=== PATIENT | female | born 1995 | race Caucasian/White ===

== ENCOUNTER 2021-01-03 19:06 | Inpatient (IN) | payer BC, MEDICAID ==
[2021-01-02 23:00] VITALS: BP 117/69
[~2021-01-03] VITALS: Ht 160 cm; Wt 78.0 kg
[2021-01-03] MEDS: BETAMETHASONE 6 MG/ML, 5ML IM SCH (18:28)
[2021-01-03] MEDS ORDERED: MAGNESIUM SULF. PMX 20GM/500ML 500 ML IV SCH (21:30)
[2021-01-03] MEDS ORDERED: CALCIUM GLUCONATE 4.6 MEQ/10 ML IV PRN (21:30)
[2021-01-03 21:55] LABS: MICROSCOPIC INDICATED
[2021-01-03 21:59] LABS: AMPHETAMINE SCREEN, URINE Negative (Negative); BARBITURATE SCREEN, URINE Negative (Negative); BENZODIAZEPINE SCREEN, URINE Negative (Negative); CANNABINOID SCREEN, URINE Negative (Negative); COCAINE SCREEN, URINE Negative (Negative); METHADONE SCREEN, URINE Negative (Negative); OPIATE SCREEN, URINE Negative (Negative)
[2021-01-03] MEDS ORDERED: ONDANSETRON 2MG/ML, 2ML IVPush PRN (23:00)
[2021-01-03] MEDS ORDERED: INDOMETHACIN 50 MG CAPSULE PO ONE (23:00)
[2021-01-03] MEDS ORDERED: ACETAMINOPHEN 325 MG TABLET PO PRN (23:00)
[2021-01-03] MEDS ORDERED: LACTATED RINGERS 1,000 ML IV SCH (23:00)
[2021-01-03] MEDS ORDERED: INDOMETHACIN 50 MG CAPSULE ONE (23:05)
[2021-01-03] MEDS: PENICILLIN GK 2,500,000 UNITS in DEXTROSE 5% 100 ML IV SCH (23:07)
[2021-01-04] MEDS ORDERED: NITR100C56 PO (01:29)
[2021-01-04] MEDS ORDERED: PREN1TAB98 PO (01:29)
[2021-01-04] MEDS ORDERED: FERR324T18 PO (01:29)
[2021-01-04] MEDS: PENICILLIN GK 2,500,000 UNITS in DEXTROSE 5% 100 ML IV SCH ×6 (03:15→23:20)
[2021-01-04] MEDS ORDERED: MAGNESIUM SULF. PMX 20GM/500ML 500 ML IV ONE (05:26)
[2021-01-04] MEDS: MAGNESIUM SULF. PMX 20GM/500ML 500 ML IV SCH ×2 (05:30→22:36)
[2021-01-04] MEDS: INDOMETHACIN 50 MG CAPSULE PO SCH ×3 (06:00→22:00)
[2021-01-04] MEDS ORDERED: INDOMETHACIN 50 MG CAPSULE PO SCH (06:00)
[2021-01-04 10:00] VITALS: BP 105/57
[2021-01-04] MEDS: FERROUS GLUCONATE 324 MG TABLET PO SCH (10:01)
[2021-01-04] MEDS ORDERED: NITROFURANTOIN (MACROBID) 100 MG CAPSULE ONE (17:25)
[2021-01-04] MEDS: NITROFURANTOIN (MACROBID) 100 MG CAPSULE PO SCH (17:27)
[2021-01-04] MEDS: BETAMETHASONE 6 MG/ML, 5ML IM SCH (18:30)
[2021-01-04] MEDS ORDERED: NITROFURANTOIN (MACROBID) 100 MG CAPSULE PO ONE (21:00)
[2021-01-05] MEDS: PENICILLIN GK 2,500,000 UNITS in DEXTROSE 5% 100 ML IV SCH ×3 (03:40→10:55)
[2021-01-05] MEDS: FERROUS GLUCONATE 324 MG TABLET PO SCH (07:26)
[2021-01-05] MEDS: INDOMETHACIN 50 MG CAPSULE PO SCH ×2 (14:00→23:01)
[2021-01-05] MEDS: NITROFURANTOIN (MACROBID) 100 MG CAPSULE PO SCH (23:01)
[2021-01-06 07:45] VITALS: BP 110/59
[2021-01-06] MEDS: FERROUS GLUCONATE 324 MG TABLET PO SCH (08:20)
[2021-01-06] MEDS: NITROFURANTOIN (MACROBID) 100 MG CAPSULE PO SCH (20:31)
[2021-01-07 07:47] VITALS: BP 87/54
[2021-01-07] MEDS: FERROUS GLUCONATE 324 MG TABLET PO SCH (08:01)
== END 2021-01-07 09:25 | disposition home or self-care (01) | DRG 566 ==
LOC: LDIP 20:23
PROVIDERS: ADMIT Obstetrics & Gynecology Maternal & Fetal Medicine; ATTEND Obstetrics & Gynecology Maternal & Fetal Medicine
DX: O32.1XX0 Maternal care for breech presentation, not applicable or unspecified (principal); O60.03 Preterm labor without delivery, third trimester; O99.323 Drug use complicating pregnancy, third trimester; F15.10 Other stimulant abuse, uncomplicated; F17.210 Nicotine dependence, cigarettes, uncomplicated; O40.3XX0 Polyhydramnios, third trimester, not applicable or unspecified; O99.333 Smoking (tobacco) complicating pregnancy, third trimester; Z3A.30 30 weeks gestation of pregnancy
CPT/HCPCS: 36415; 80307; 81001; 83735; 86850; 86870; 86900; 86922; 86923; 87086; 87635; G0378; J0702; J2540; J3475; J7120

== ENCOUNTER 2021-01-19 06:54 | Inpatient (IN) | payer BC, MEDICAID ==
[~2021-01-19] VITALS: Ht 160 cm; Wt 78.6 kg
[~2021-01-19 06:54] MED LIST: FERR324T18 PO; NITR100C56 PO; PREN1TAB98 PO
[2021-01-19] MEDS: LACTATED RINGERS 1,000 ML IV SCH ×2 (07:56→16:22)
[2021-01-19] MEDS ORDERED: CALCIUM GLUCONATE 4.6 MEQ/10 ML IV PRN (08:00)
[2021-01-19] MEDS ORDERED: LACTATED RINGERS 1,000 ML IV PRN (08:00)
[2021-01-19] MEDS ORDERED: MAGNESIUM SULF. PMX 20GM/500ML 500 ML IV SCH (08:00)
[2021-01-19 09:00] VITALS: BP 132/64
[2021-01-19 09:00] LABS: BASOPHILS % (AUTO) 0 % (0-1); EOSINOPHILS % (AUTO) 0 % (1-7); LYMPHOCYTES % (AUTO) 11 % (22-44); MEAN CORPUSCULAR HEMOGLOBIN 29.5 pg (27.0-34.8); MEAN CORPUSCULAR HGB CONC 33.9 g/dL (32.4-35.8); MEAN PLATELET VOLUME 7.8 fL (7.4-10.4); MONOCYTES % (AUTO) 5 % (2-9); NEUTROPHILS % (AUTO) 84 % (42-75); PLATELET COUNT 247 x10^3/uL (130-400); RED BLOOD COUNT 3.64 x10^6/uL (3.82-5.3); RED CELL DISTRIBUTION WIDTH 16.8 % (9.6-15.2)
[2021-01-19] MEDS ORDERED: PLEASE ENTER HEIGHT AND WEIGHT MC SCH (09:00)
[2021-01-19 09:13] LABS: AMPHETAMINE SCREEN, URINE Negative (Negative); BARBITURATE SCREEN, URINE Negative (Negative); BENZODIAZEPINE SCREEN, URINE Negative (Negative); CANNABINOID SCREEN, URINE Negative (Negative); COCAINE SCREEN, URINE Negative (Negative); METHADONE SCREEN, URINE Negative (Negative); OPIATE SCREEN, URINE Negative (Negative)
[2021-01-19] MEDS ORDERED: ACETAMINOPHEN 650 MG SUPP ONE (10:08)
[2021-01-19] MEDS ORDERED: ACETAMINOPHEN 325 MG TABLET ONE (10:09)
[2021-01-19] MEDS ORDERED: TERBUTALINE 1 MG/ML, 1ML IVPush PRN (10:30)
[2021-01-19] MEDS ORDERED: FENTANYL PF 100 MCG/2ML IV PRN (10:30)
[2021-01-19] MEDS ORDERED: FENTANYL PF 100 MCG/2ML IVPush PRN (10:30)
[2021-01-19] MEDS ORDERED: TERBUTALINE 1 MG/ML, 1ML SQ PRN (10:30)
[2021-01-19] MEDS ORDERED: OXYTOCIN 30U/ 0.9% NaCL 500ML 500 ML IV ONE (10:30)
[2021-01-19] MEDS ORDERED: ONDANSETRON 2MG/ML, 2ML IVPush PRN (10:30)
[2021-01-19] MEDS ORDERED: SODIUM CITRATE/CITRIC ACID 30 ML UDC PO PRN (10:30)
[2021-01-19 10:54] LABS: MICROSCOPIC INDICATED
[2021-01-19 11:03] LABS: % IRON SATURATION 7 % (20-55); IRON LEVEL 34 mcg/dL (50-170); TOTAL IRON BINDING CAPACITY 465 mcg/dL (250-450)
[2021-01-19] MEDS ORDERED: CEFAZOLIN 2,000 MG in DEXTROSE 5% 50 ML IV ONE (11:30)
[2021-01-19] MEDS ORDERED: CEFAZOLIN 2,000 MG in SODIUM CHLORIDE 0.9% 50 ML IV ONE (11:30)
[2021-01-19] MEDS ORDERED: ACETAMINOPHEN 325 MG TABLET PO PRN (12:00)
[2021-01-19] MEDS: PENICILLIN GK 2,500,000 UNITS in DEXTROSE 5% 100 ML IVPB SCH ×3 (12:28→20:00)
[2021-01-19] MEDS ORDERED: NEWBORN KIT ONE (13:03)
[2021-01-19] MEDS ORDERED: LIDOCAINE 1%, 20ML ONE (13:03)
[2021-01-19] MEDS ORDERED: MISOPROSTOL 200 MCG TABLET ONE (13:03)
[2021-01-19] MEDS ORDERED: FENTANYL/BUPIV./NS/PF 250 ML EPIDCONT ONE (15:21)
[2021-01-19] MEDS ORDERED: FENTANYL/BUPIV./NS/PF 250 ML EPIDCONT SCH (16:30)
[2021-01-19] MEDS ORDERED: EPHEDRINE 50 MG/ML, 1ML IVPush PRN (16:30)
[2021-01-19] MEDS ORDERED: LACTATED RINGERS 1,000 ML IVBOLUS PRN (16:30)
[2021-01-19] MEDS ORDERED: NALOXONE 0.4 MG/ML, 1ML IVPush PRN (16:30)
[2021-01-19 19:18] VITALS: BP 107/53
[2021-01-19] MEDS ORDERED: NITROFURANTOIN (MACROBID) 100 MG CAPSULE ONE (22:25)
[2021-01-19] MEDS ORDERED: DIPH,PERTUSS(ACELL),TET VAC/PF NC IM-VACC PRN (22:30)
[2021-01-19] MEDS ORDERED: RHOGAM FROM BLOOD BANK 1 NOTE EA IM/IV ONE (22:30)
[2021-01-19] MEDS ORDERED: METOCLOPRAMIDE 5 MG/ML, 2ML IV PRN (22:30)
[2021-01-19] MEDS ORDERED: CEFAZOLIN PMX 1GM/50ML 50 ML IV ONE (22:30)
[2021-01-19] MEDS ORDERED: BISACODYL 10 MG SUPP PR PRN (22:30)
[2021-01-19] MEDS ORDERED: CALCIUM CARBONATE 500 MG TAB.CHEW PO PRN (22:30)
[2021-01-19] MEDS ORDERED: OXYTOCIN 30U/ 0.9% NaCL 500ML 500 ML IV SCH (22:30)
[2021-01-19] MEDS ORDERED: SIMETHICONE 80 MG CHEW TAB PO PRN (22:30)
[2021-01-19] MEDS ORDERED: MISOPROSTOL 200 MCG TABLET PO PRN (22:30)
[2021-01-19] MEDS: NITROFURANTOIN (MACROBID) 100 MG CAPSULE PO SCH (22:31)
[2021-01-20 00:15] VITALS: BP 109/72
[2021-01-20 04:00] VITALS: BP 112/76
[2021-01-20] MEDS: IBUPROFEN 600 MG TABLET PO PRN ×3 (04:03→18:27)
[2021-01-20 06:27] LABS: BASOPHILS % (AUTO) 0 % (0-1); EOSINOPHILS % (AUTO) 0 % (1-7); LYMPHOCYTES % (AUTO) 11 % (22-44); MEAN CORPUSCULAR HEMOGLOBIN 30.4 pg (27.0-34.8); MEAN CORPUSCULAR HGB CONC 34.5 g/dL (32.4-35.8); MONOCYTES % (AUTO) 5 % (2-9); NEUTROPHILS % (AUTO) 84 % (42-75); PLATELET COUNT 187 x10^3/uL (130-400); RED BLOOD COUNT 3.13 x10^6/uL (3.82-5.3)
[2021-01-20 07:45] VITALS: BP 95/58
[2021-01-20] MEDS ORDERED: DOCUSATE 100 MG CAPSULE ONE (09:01)
[2021-01-20] MEDS: PRENATAL VIT/IRON/FA 1 EACH TABLET PO SCH (09:03)
[2021-01-20] MEDS: FERROUS GLUCONATE 324 MG TABLET PO SCH (09:03)
[2021-01-20] MEDS: NITROFURANTOIN (MACROBID) 100 MG CAPSULE PO SCH ×2 (09:03→20:54)
[2021-01-20 12:25] VITALS: BP 100/64
[2021-01-20 20:05] VITALS: BP 100/66
[2021-01-21] MEDS: FERROUS GLUCONATE 324 MG TABLET PO SCH (09:10)
[2021-01-21 09:15] VITALS: BP 108/72
[2021-01-21] MEDS: NITROFURANTOIN (MACROBID) 100 MG CAPSULE PO SCH (09:16)
[2021-01-21] MEDS: PRENATAL VIT/IRON/FA 1 EACH TABLET PO SCH (09:16)
[2021-01-21] MEDS ORDERED: IBUP-1222 PO (13:05)
== END 2021-01-21 13:39 | disposition home or self-care (01) | DRG 560 ==
LOC: LDIP 07:47 → 2NW 23:56
PROVIDERS: ADMIT Obstetrics & Gynecology Maternal & Fetal Medicine; ATTEND Obstetrics & Gynecology Maternal & Fetal Medicine
PROC: 10E0XZZ Delivery of Products of Conception, External Approach (ICD-10-PCS; principal; 2021-01-19)
PROC: 0KQM0ZZ Repair Perineum Muscle, Open Approach (ICD-10-PCS; 2021-01-19)
DX: O60.14X0 Preterm labor third trimester with preterm delivery third trimester, not applicable or unspecified (principal); Z37.0 Single live birth; O98.12 Syphilis complicating childbirth; O40.3XX0 Polyhydramnios, third trimester, not applicable or unspecified; O99.02 Anemia complicating childbirth; O99.324 Drug use complicating childbirth; Z20.822 Contact with and (suspected) exposure to COVID-19; F17.210 Nicotine dependence, cigarettes, uncomplicated; F15.10 Other stimulant abuse, uncomplicated; O99.334 Smoking (tobacco) complicating childbirth; Z3A.32 32 weeks gestation of pregnancy; O70.1 Second degree perineal laceration during delivery
CPT/HCPCS: 36415; J3490; 80307; 81001; 83540; 83550; 83735; 85025; 85461; 86592; 86780; 86850; 86900; 87086; 87635; 88307; G0378; J0690; J2540; J2790; J2590; J3010; J7120